=== PATIENT | male | born 1975 ===

== ENCOUNTER → 2017-01-18 | Outpatient (CLI) | payer BC ==
[2017-01-18 13:57] LABS: BLOOD UREA NITROGEN 20 mg/dl (7-18); BUN/CREATININE RATIO 16.5 (10-20); GLUCOSE,FASTING 92 mg/dl (70-99)
[2017-01-18 14:03] LABS: CHOLESTEROL 210 mg/dl (0-200); HDL CHOLESTEROL 42 mg/dl; LDL CHOLESTEROL CALCULATED 151 mg/dl; PROSTATE SPECIFIC ANTIGEN 0.562 ng/ml (0.000-4.000); TRIGLYCERIDES 87 mg/dl (0-150); VERY LOW DENSITY LIPOPROT CALC 17 mg/dl
== END | disposition home or self-care (01) ==
LOC: C.LABMFLN 07:47
PROVIDERS: ATTEND Family Medicine
DX: R39.11 Hesitancy of micturition (principal); N52.9 Male erectile dysfunction, unspecified; E78.5 Hyperlipidemia, unspecified